=== PATIENT | male | born 1980 | race Caucasian/White ===

== ENCOUNTER 2017-02-03 15:12 | Emergency (ER) | payer OTHER ==
[~2017-02-03] VITALS: Ht 185.4 cm; Wt 146.5 kg
[~2017-02-03 15:12] MED LIST: ACETAMINOP160 MG/51 PO; ADULT LOW DOSE81 M1 PO; ADVIL200 M1 PO; AMRIX15 MG PO; ANXIETY MED; ASPIR 8181 M1 PO; ASPIR-LOW81 MG PO; ATARAX,VISTARIL25 MG PO; AUGMENTIN500 MG PO; BUTALB-APAP-CA1 EACH PO; CEFDINIR300 MG PO; CELEXA20 MG; CELEXA20 MG PO; CHLORDIAZEPOXI1 EACH PO; CITALOPRAM HBR40 M1 PO; COMPAZINE10 MG PO; CYMBALTA30 MG PO; CYPROHEPTADINE H4 M1 PO; DEPAKOTE500 MG PO; DIHYDROERGO1 MG/1 ML SC; DIVALPROEX SOD500 MG PO; ESCITALOPRAM OX10 MG PO; FENOFIBRIC ACI135 MG PO; FLEXERIL10 MG PO; GEODON80 MG; HYDROXYZINE HCL25 MG PO; IMITREX6 MG/0.53 SC; LAMICTAL100 MG PO; LAMICTAL150 M1 PO; LAMICTAL25 MG PO; LAMOTRIGINE100 MG PO; LATUDA40 MG PO; LEVBID0.375 MG PO; LIDOCAINE700 MG TD; LISINOPRIL10 MG PO; LISINOPRIL20 MG PO; LYRICA300 MG PO; METFORMIN HCL1000 MG PO; METFORMIN HCL500 MG PO; MINIPRESS2 MG PO; MOBIC15 MG PO; MULTIPLE VITAM1 EAC1 PO; NAPROSYN500 MG PO; NORCO 5/3251 TABLET PO; NORTRIPTYLINE H25 MG PO; OMEPRAZOLE40 M1 PO; ONDANSETRON ODT4 MG PO; OXCARBAZEPINE300 MG PO; OXYCODONE HCL10 MG PO; PANTOPRAZOLE SO40 MG PO; PERCOCET 5/31 TABLET; PERCOCET 5/31 TABLET PO; PHENADOZ25 MG PR; PHENERGAN25 MG PR; PRAZOSIN HCL1 MG PO; PRAZOSIN HCL2 MG PO; PREDNISONE20 MG PO; PREDNISONE50 MG PO; PRILOSEC40 MG PO; PRISTIQ100 MG PO; PRISTIQ50 MG PO; PROCTOZONE-HC30 GM PR; PROMETHAZINE HC25 M1 PO; RISPERDAL0.5 MG PO; SAPHRIS5 MG SL; SEROQUEL200 MG PO; STRATTERA100 MG PO; SUMATRIPTA6 MG/0.5 M SC; TEMAZEPAM7.5 M1 PO; TIZANIDINE HCL2 M1 PO; TIZANIDINE HCL2 MG PO; TOPIRAMATE25 MG PO; TRAMADOL HCL50 MG PO; TRICOR145 MG PO; TRILIPIX135 MG PO; ULTRAM50 MG PO; VALIUM5 MG PO; VOLTAREN 1% GE100 GM TP; ZANTAC150 MG PO; ZESTRIL20 MG PO; ZOFRAN ODT8 MG PO; ZOFRAN4 MG PO; celeXA PO; depakote PO; oxyCODONE PO
[2017-02-03 15:42] LABS: POINT-OF-CARE METER ID UU13113778
[2017-02-03 16:34] LABS: ADD MIUA? NO; BILIRUBIN NEGATIVE; BLOOD NEGATIVE; COLOR YELLOW ((YELLOW)); GLUCOSE (STRIP) NEGATIVE; KETONES NEGATIVE; LEUKOCYTES NEGATIVE; NITRITE NEGATIVE; PROTEIN (STRIP) NEGATIVE; SPECIFIC GRAVITY 1.023 (1.000-1.030); UCUL ADDED? NO
[2017-02-03 16:48] LABS: HEMATOCRIT 36.7 % (38.0-50.0); MCHC 34.3 G/DL (30.0-36.0); MCV 87.4 FL (86-99); MEAN PLAT.VOLUME 11.1 uM^3 (9.0-12.4); PLATELET COUNT 111 K/uL (156-360); RBC DIS.WIDTH-CV 12.6 % (11.8-14.6); RBC DIS.WIDTH-SD 39.9 % (39-53); WHITE BLOOD COUNT 4.4 K/uL (4.1-10.2)
[2017-02-03 16:57] LABS: CHLORIDE 104 mEq/L (99-109); SODIUM 138 mEq/L (136-147)
[2017-02-03 16:59] LABS: GLUCOSE 177 mg/dL (70-99)
[2017-02-03 17:00] LABS: ANION GAP 11 MEQ/L (2-14)
[2017-02-03 17:01] LABS: TOTAL BILIRUBIN 0.6 mg/dL (0.0-1.0)
[2017-02-03 17:02] LABS: ALKALINE PHOSPHATASE 76 IU/L (3-129)
[2017-02-03 17:03] LABS: GFR ESTIMATE (CALCULATED) > 59 mL/min/
[2017-02-03 17:04] LABS: UREA NITROGEN (BUN) 11 mg/dL (9-23)
[2017-02-03 17:06] LABS: LIPASE 24 U/L (1.0-51.0)
[2017-02-03] MEDS ORDERED: PHENERGAN25 MG PR (17:22)
[2017-02-03 17:29] VITALS: BP 135/92
== END 2017-02-03 17:43 | disposition home or self-care (01) ==
LOC: EME 15:12 → EXP 15:12
PROVIDERS: Nurse Practitioner Family
DX: J06.9 Acute upper respiratory infection, unspecified (principal); R19.7 Diarrhea, unspecified; E11.9 Type 2 diabetes mellitus without complications; M79.7 Fibromyalgia; I10 Essential (primary) hypertension; Z79.84 Long term (current) use of oral hypoglycemic drugs
CPT/HCPCS: 71020; 80053; 81003; 82948; 83690; 85027; 99281; 99284; J1200; J1885; J2405; J2765; J7030

== ENCOUNTER 2017-02-08 09:05 | Observation (INO) | payer OTHER ==
[~2017-02-08] VITALS: Ht 185.4 cm; Wt 145.4 kg
[2017-02-08 10:18] LABS: MCHC 34.3 G/DL (30.0-36.0); MCV 87.3 FL (86-99); PLATELET COUNT 137 K/uL (156-360); RBC DIS.WIDTH-CV 12.8 % (11.8-14.6); RBC DIS.WIDTH-SD 40.2 % (39-53); RED BLOOD COUNT 5.04 M/uL (4.00-5.50)
[2017-02-08 10:19] LABS: WHITE BLOOD COUNT 6.7 K/uL (4.1-10.2)
[2017-02-08 10:53] LABS: ALKALINE PHOSPHATASE 78 IU/L (3-129); ANION GAP 12 MEQ/L (2-14); CHLORIDE 104 MEQ/L (99-109); GFR ESTIMATE (CALCULATED) > 59 mL/min/; GLUCOSE 220 mg/dL (70-99); LIPASE 31 U/L (1.0-51.0); SAMPLE HEMOLYSIS CHECK 0; SAMPLE ICTERIC CHECK 0; SAMPLE LIPEMIA CHECK 0; SODIUM 139 MEQ/L (136-147); TOTAL BILIRUBIN 0.7 MG/DL (0.0-1.0); UREA NITROGEN (BUN) 18 mg/dL (9-23)
[2017-02-08 11:09] LABS: ADD MIUA? YES; BILIRUBIN NEGATIVE; BLOOD NEGATIVE; COLOR AMBER ((YELLOW)); GLUCOSE (STRIP) NEGATIVE; KETONES NEGATIVE; LEUKOCYTES NEGATIVE; NITRITE NEGATIVE; PROTEIN (STRIP) 30; SPECIFIC GRAVITY 1.025 (1.000-1.030); UROBILINOGEN 0.2 MG/DL (0.2-1.0)
[2017-02-08 11:22] LABS: BACTERIA RARE /HPF; CALCIUM OXALATE CRYSTALS 3+ /HPF; EPITHELIAL CELLS RARE /HPF; HYALINE CASTS 0-5 /LPF; MUCUS 1+ /LPF; RED BLOOD CELLS 0-5 /HPF (0-5); UCUL ADDED? NO; WHITE BLOOD CELLS 0-5 /HPF (0-5)
[2017-02-08 11:49] LABS: AMYLASE 21 IU/L (1-118)
[2017-02-08] MEDS ORDERED: OMEPRAZOLE40 M1 PO (14:32)
[2017-02-08] MEDS ORDERED: LAMICTAL25 MG PO (14:36)
[2017-02-08] MEDS ORDERED: METFORMIN HCL500 MG PO (14:41)
[2017-02-08 17:18] VITALS: BP 139/66
[2017-02-08 19:39] LABS: C DIFF TOXIN NEGATIVE (NEGATIVE)
[2017-02-08 19:40] LABS: PROBE CHECK PASS; SPECIMEN PROCESSING CONTROL PASS
[2017-02-08 23:37] VITALS: BP 125/59
[2017-02-09 03:41] VITALS: BP 125/67
[2017-02-09 06:39] LABS: ALKALINE PHOSPHATASE 55 IU/L (3-129); ANION GAP 10 MEQ/L (2-14); ANION GAP 9 MEQ/L (2-14); CHLORIDE 105 MEQ/L (99-109); CHLORIDE 106 MEQ/L (99-109); GFR ESTIMATE (CALCULATED) > 59 mL/min/; GLUCOSE 167 mg/dL (70-99); GLUCOSE 172 mg/dL (70-99); POTASSIUM 3.7 MEQ/L (3.7-5.4); SAMPLE HEMOLYSIS CHECK 0; SAMPLE ICTERIC CHECK 0; SAMPLE LIPEMIA CHECK 0; SODIUM 139 MEQ/L (136-147); SODIUM 140 MEQ/L (136-147); UREA NITROGEN (BUN) 13 mg/dL (9-23); UREA NITROGEN (BUN) 14 mg/dL (9-23)
[2017-02-09 06:40] LABS: TOTAL BILIRUBIN 1.1 MG/DL (0.0-1.0)
[2017-02-09 07:10] LABS: EOSINOPHIL COUNT 0.2 K/uL (0-0.3); HEMATOCRIT 36.9 % (38.0-50.0); IMMATURE GRANULOCYTE (%) 0.4 % (0.0-0.7); INSTRUMENT ABS NEUTROPHIL CT 2.7 K/uL; MCH 29.8 PG (29.0-34.0); MCHC 33.9 G/DL (30.0-36.0); MCV 87.9 FL (86-99); MEAN PLAT.VOLUME 11.1 uM^3 (9.0-12.4); MONOCYTE COUNT 0.6 K/uL (0-0.8); NEUTROPHIL (%) 60.2 % (45-76); NEUTROPHIL COUNT 2.7 K/uL (1.8-6.4); PLATELET COUNT 120 K/uL (156-360); RBC DIS.WIDTH-SD 41.3 % (39-53)
[2017-02-09 07:25] VITALS: BP 138/75
[2017-02-09 07:36] LABS: WHITE BLOOD COUNT 4.5 K/uL (4.1-10.2)
[2017-02-09 11:44] VITALS: BP 127/63
[2017-02-09 16:01] VITALS: BP 136/69
[2017-02-09 16:20] LABS: POINT-OF-CARE METER ID UU13113694
[2017-02-09 23:54] VITALS: BP 123/68
[2017-02-10] VITALS: BP 123/61
[2017-02-10 01:43] LABS: POINT-OF-CARE METER ID UU14162513
[2017-02-10 04:00] VITALS: BP 137/73
[2017-02-10 06:00] VITALS: BP 117/65
[2017-02-10 06:47] LABS: HEMATOCRIT 34.4 % (38.0-50.0); MCH 29.9 PG (29.0-34.0); MCHC 33.4 G/DL (30.0-36.0); MCV 89.6 FL (86-99); MEAN PLAT.VOLUME 10.9 uM^3 (9.0-12.4); PLATELET COUNT 88 K/uL (156-360); RBC DIS.WIDTH-CV 12.9 % (11.8-14.6); RED BLOOD COUNT 3.84 M/uL (4.00-5.50); WHITE BLOOD COUNT 3.2 K/uL (4.1-10.2)
[2017-02-10 07:14] LABS: ALKALINE PHOSPHATASE 55 IU/L (3-129); ANION GAP 9 MEQ/L (2-14); CHLORIDE 108 MEQ/L (99-109); DIRECT BILIRUBIN 0.2 mg/dL (0.0-0.3); GFR ESTIMATE (CALCULATED) > 59 mL/min/; GLUCOSE 140 mg/dL (70-99); POTASSIUM 3.7 MEQ/L (3.7-5.4); SAMPLE HEMOLYSIS CHECK 0; SAMPLE ICTERIC CHECK 0; SAMPLE LIPEMIA CHECK 0; SODIUM 142 MEQ/L (136-147); UREA NITROGEN (BUN) 9 mg/dL (9-23)
[2017-02-10 07:18] LABS: TOTAL BILIRUBIN 0.6 MG/DL (0.0-1.0)
[2017-02-10 07:40] LABS: POINT-OF-CARE METER ID UU13113831
[2017-02-10] MEDS ORDERED: PROTONIX40 MG PO (07:53)
[2017-02-10 07:55] VITALS: BP 140/76
[2017-02-10] MEDS ORDERED: ZOFRAN4 MG PO (09:51)
[2017-02-10 11:14] LABS: HBSG INDEX 0.25; HPCA INDEX 0.13
[2017-02-10 11:15] LABS: ANTI-HEPATITIS A VIRUS (IGM) Nonreactive; HAV INDEX 0.14
[2017-02-10 11:17] LABS: ANTI-HEPATITIS B CORE (IGM) Nonreactive; HBC IgM INDEX 0.07
== END 2017-02-10 11:07 | disposition home or self-care (01) ==
LOC: EME 09:05 → EDOF 14:28 → 5WEST 14:28
PROVIDERS: Family Medicine; Internal Medicine Gastroenterology; Nurse Practitioner Adult Health
PROC: 0DB68ZX Excision of Stomach, Via Natural or Artificial Opening Endoscopic, Diagnostic (ICD-10-PCS; principal; 2017-02-09)
DX: K29.70 Gastritis, unspecified, without bleeding (principal); K76.0 Fatty (change of) liver, not elsewhere classified; R16.1 Splenomegaly, not elsewhere classified; D69.6 Thrombocytopenia, unspecified; I10 Essential (primary) hypertension; G47.30 Sleep apnea, unspecified; G43.909 Migraine, unspecified, not intractable, without status migrainosus; E78.5 Hyperlipidemia, unspecified; F32.9 Major depressive disorder, single episode, unspecified; F43.10 Post-traumatic stress disorder, unspecified; E66.01 Morbid (severe) obesity due to excess calories; Z68.41 Body mass index [BMI] 40.0-44.9, adult
CPT/HCPCS: 74177; 80048; 80053; 80074; 80076; 81003; 82150; 82948; 83690; 85025; 85027; 87177; 87493; 88305; 88342 TC; 99281; 99285; C9113; G0378; J1170; J2270; J2405; J2765; J3010; J7030; S0028

== ENCOUNTER 2017-02-14 14:07 | Inpatient (IN) | payer OTHER ==
[~2017-02-14] VITALS: Ht 185.4 cm; Wt 143.6 kg
[~2017-02-14 14:07] MED LIST changes: +PROTONIX40 MG PO
[2017-02-14 14:47] LABS: POINT-OF-CARE METER ID UU13113778
[2017-02-14 15:00] LABS: HEMATOCRIT 40.9 % (38.0-50.0); MCH 29.4 PG (29.0-34.0); MCHC 33.5 G/DL (30.0-36.0); MCV 87.8 FL (86-99); MEAN PLAT.VOLUME 10.5 uM^3 (9.0-12.4); RBC DIS.WIDTH-CV 12.7 % (11.8-14.6); RBC DIS.WIDTH-SD 41.1 % (39-53)
[2017-02-14 15:01] LABS: PLATELET COUNT 139 K/uL (156-360); RED BLOOD COUNT 4.66 M/uL (4.00-5.50)
[2017-02-14 15:06] LABS: CHLORIDE 108 mEq/L (99-109); SODIUM 141 mEq/L (136-147)
[2017-02-14 15:09] LABS: GLUCOSE 121 mg/dL (70-99)
[2017-02-14 15:10] LABS: ANION GAP 9 MEQ/L (2-14)
[2017-02-14 15:11] LABS: TOTAL BILIRUBIN 0.6 mg/dL (0.0-1.0)
[2017-02-14 15:12] LABS: ALKALINE PHOSPHATASE 75 IU/L (3-129); GFR ESTIMATE (CALCULATED) > 59 mL/min/
[2017-02-14 15:13] LABS: UREA NITROGEN (BUN) 9 mg/dL (9-23)
[2017-02-14 15:16] LABS: LIPASE 34 U/L (1.0-51.0)
[2017-02-14 17:23] LABS: ADD MIUA? YES; BILIRUBIN NEGATIVE; BLOOD NEGATIVE; COLOR YELLOW ((YELLOW)); GLUCOSE (STRIP) NEGATIVE; KETONES NEGATIVE; LEUKOCYTES NEGATIVE; NITRITE NEGATIVE; PROTEIN (STRIP) NEGATIVE; UROBILINOGEN 0.2 MG/DL (0.2-1.0)
[2017-02-14 17:29] LABS: BACTERIA RARE /HPF; EPITHELIAL CELLS NONE SEEN /HPF; MUCUS TRACE /LPF; RED BLOOD CELLS 0-5 /HPF (0-5); UCUL ADDED? NO; WHITE BLOOD CELLS 0-5 /HPF (0-5)
[2017-02-14 17:30] LABS: AMPHETAMINE NEGATIVE (500 ng/mL); BARBITURATES NEGATIVE (200 ng/mL); BENZODIAZEPINES NEGATIVE (150 ng/mL); COCAINE NEGATIVE (150 ng/mL); INTERNAL CONTROLS VALID? YES; METHADONE NEGATIVE (200 ng/mL); METHAMPHETAMINE NEGATIVE (500 ng/mL); OPIATES (MORPHINE) NEGATIVE (100 ng/mL); OXYCODONE PRESUMPTIVE POSITIVE (100 ng/mL); PHENCYCLIDINE NEGATIVE (25 ng/mL); PROPOXYPHENE NEGATIVE (300 ng/mL); THC CANNABINOIDS NEGATIVE (50 ng/mL); TRICYCLIC ANTIDEPRESSANTS NEGATIVE (300 ng/mL)
[2017-02-14] MEDS ORDERED: TYLENOL EXTRA500 MG PO (21:17)
[2017-02-14] MEDS ORDERED: MAXALT10 MG PO (21:17)
[2017-02-14] MEDS ORDERED: FLONASE16 G1 BOTH NARES (21:18)
[2017-02-14] MEDS ORDERED: FISH OIL 1,0001 EAC7 PO (21:18)
[2017-02-14] MEDS ORDERED: NIGHT TIME COL296 ML PO (21:19)
[2017-02-15 06:28] LABS: CHLORIDE 111 mEq/L (99-109); POTASSIUM 4.2 mEq/L (3.7-5.4); SODIUM 142 mEq/L (136-147)
[2017-02-15 06:29] LABS: GLUCOSE 139 mg/dL (70-99)
[2017-02-15 06:31] LABS: ANION GAP 11 MEQ/L (2-14)
[2017-02-15 06:33] LABS: GFR ESTIMATE (CALCULATED) > 59 mL/min/
[2017-02-15 06:34] LABS: UREA NITROGEN (BUN) 8 mg/dL (9-23)
[2017-02-15 08:39] LABS: POINT-OF-CARE METER ID UU14100415
[2017-02-15 09:34] VITALS: BP 129/69
[2017-02-15 11:35] LABS: POINT-OF-CARE METER ID UU14100415
[2017-02-15 11:41] VITALS: BP 129/69
[2017-02-15 15:27] VITALS: BP 147/76
[2017-02-15 15:57] LABS: POINT-OF-CARE METER ID UU14100415
[2017-02-15 16:16] VITALS: BP 166/93
[2017-02-15 16:39] LABS: POINT-OF-CARE METER ID UU13113725
[2017-02-15 23:15] VITALS: BP 115/58
[2017-02-16 00:02] LABS: POINT-OF-CARE METER ID UU13113725
[2017-02-16 07:47] VITALS: BP 121/73
[2017-02-16 14:06] LABS: POINT-OF-CARE METER ID UU13113725
[2017-02-16 17:15] VITALS: BP 125/71
[2017-02-16 23:27] VITALS: BP 119/81
[2017-02-17 08:13] VITALS: BP 143/77
[2017-02-17 16:42] VITALS: BP 129/58
[2017-02-17 21:02] LABS: POINT-OF-CARE METER ID UU13113725
[2017-02-17 23:00] VITALS: BP 151/84
[2017-02-18 05:52] LABS: POINT-OF-CARE METER ID UU13113725
[2017-02-18 07:52] VITALS: BP 124/65
[2017-02-18] MEDS ORDERED: PROTONIX40 MG PO (13:02)
[2017-02-18] MEDS ORDERED: ZOFRAN ODT8 MG PO (13:03)
[2017-02-18] MEDS ORDERED: METFORMIN HCL1000 MG PO (13:03)
[2017-02-18] MEDS ORDERED: ACETAMINOPHEN-1 EAC1 PO (13:04)
[2017-02-18] MEDS ORDERED: COLACE100 MG PO (13:20)
[2017-02-18] MEDS ORDERED: MIRALAX17 GM PO (13:20)
== END 2017-02-18 14:03 | disposition home or self-care (01) | DRG 392 ==
LOC: EME 14:07 → EDOF 23:04 → 5EAST 23:04
PROVIDERS: Family Medicine; Hospitalist; Internal Medicine; Physician Assistant
DX: R10.9 Unspecified abdominal pain (principal); Z68.41 Body mass index [BMI] 40.0-44.9, adult; R11.2 Nausea with vomiting, unspecified; E11.9 Type 2 diabetes mellitus without complications; E78.5 Hyperlipidemia, unspecified; I10 Essential (primary) hypertension; K76.0 Fatty (change of) liver, not elsewhere classified; G47.30 Sleep apnea, unspecified; E66.9 Obesity, unspecified; D69.6 Thrombocytopenia, unspecified; F32.9 Major depressive disorder, single episode, unspecified; K29.70 Gastritis, unspecified, without bleeding
CPT/HCPCS: 74176; 78264; 80048; 80053; 81003; 82607; 82746; 82948; 83690; 85027; 99281; 99285; A9541; C9113; J0780; J1200; J1630; J1644; J1815; J2060; J2405; J2765; J3480; J7030

== ENCOUNTER 2017-08-17 20:50 | Emergency (ER) | payer OTHER ==
[~2017-08-17] VITALS: Ht 188 cm; Wt 128.4 kg
[~2017-08-17 20:50] MED LIST changes: +ACETAMINOPHEN-1 EAC1 PO; +COLACE100 MG PO; +FISH OIL 1,0001 EAC7 PO; +FLONASE16 G1 BOTH NARES; +MAXALT10 MG PO; +MIRALAX17 GM PO; +NIGHT TIME COL296 ML PO; +TYLENOL EXTRA500 MG PO
[2017-08-18 00:56] LABS: HEMATOCRIT 38.7 % (38.0-50.0); MCHC 35.1 G/DL (30.0-36.0); MCV 88.2 FL (86-99); MEAN PLAT.VOLUME 10.5 uM^3 (9.0-12.4); PLATELET COUNT 153 K/uL (156-360); RBC DIS.WIDTH-CV 12.6 % (11.8-14.6); RBC DIS.WIDTH-SD 40.8 % (39-53); RED BLOOD COUNT 4.39 M/uL (4.00-5.50); WHITE BLOOD COUNT 6.5 K/uL (4.1-10.2)
[2017-08-18 01:05] LABS: CHLORIDE 106 mEq/L (99-109); POTASSIUM 3.8 mEq/L (3.7-5.4); SODIUM 140 mEq/L (136-147)
[2017-08-18 01:07] LABS: GLUCOSE 119 mg/dL (70-99)
[2017-08-18 01:08] LABS: ANION GAP 13 MEQ/L (2-14); D-DIMER ELISA < 150.00 ng/mLDDU (<230)
[2017-08-18 01:09] LABS: TOTAL BILIRUBIN 0.5 mg/dL (0.0-1.0)
[2017-08-18 01:11] LABS: ALKALINE PHOSPHATASE 60 IU/L (3-129); GFR ESTIMATE (CALCULATED) > 59 mL/min/
[2017-08-18 01:12] LABS: UREA NITROGEN (BUN) 17 mg/dL (9-23)
[2017-08-18] MEDS ORDERED: VALIUM5 MG PO (01:20)
[2017-08-18] MEDS ORDERED: MOTRIN800 MG PO (01:20)
[2017-08-18 01:46] VITALS: BP 143/80
== END 2017-08-18 01:46 | disposition home or self-care (01) ==
LOC: EME 20:50 → EXP 20:51
PROVIDERS: Nurse Practitioner Family
DX: S20.212A Contusion of left front wall of thorax, initial encounter (principal); W51.XXXA Accidental striking against or bumped into by another person, initial encounter; Y93.75 Activity, martial arts
CPT/HCPCS: 71101; 80053; 85027; 85379; 99281; 99283; J1885

== ENCOUNTER 2018-01-29 14:14 | Emergency (ER) | payer OTHER ==
[~2018-01-29] VITALS: Ht 185.4 cm; Wt 126.6 kg
[~2018-01-29 14:14] MED LIST changes: +MOTRIN800 MG PO
[2018-01-29 15:12] LABS: BASOPHIL (%) 0.3 % (0-1); EOSINOPHIL (%) 2.3 % (0-5); EOSINOPHIL COUNT 0.1 K/uL (0-0.3); HEMATOCRIT 39.1 % (38.0-50.0); HEMOGLOBIN 14.1 G/DL (12.5-16.6); IMMATURE GRANULOCYTE (%) 0.2 % (0.0-0.7); LYMPHOCYTE (%) 30.3 % (15-42); LYMPHOCYTE COUNT 1.8 K/uL (1.0-2.8); MCHC 36.1 G/DL (30.0-36.0); MCV 85.9 FL (86-99); MONOCYTE (%) 6.8 % (3-12); MONOCYTE COUNT 0.4 K/uL (0-0.8); NEUTROPHIL (%) 60.1 % (45-76); NEUTROPHIL COUNT 3.5 K/uL (1.8-6.4); PLATELET COUNT 160 K/uL (156-360); RBC DIS.WIDTH-CV 12.6 % (11.8-14.6); RBC DIS.WIDTH-SD 39.3 % (39-53); RED BLOOD COUNT 4.55 M/uL (4.00-5.50); WHITE BLOOD COUNT 5.8 K/uL (4.1-10.2)
[2018-01-29 15:25] LABS: ALBUMIN 4.5 g/dL (3.2-4.8); CHLORIDE 106 mEq/L (99-109); SODIUM 138 mEq/L (136-147)
[2018-01-29 15:27] LABS: GLUCOSE 115 mg/dL (70-99); TOTAL PROTEIN 7.2 g/dL (6.4-8.3)
[2018-01-29 15:29] LABS: TOTAL BILIRUBIN 0.4 mg/dL (0.0-1.0)
[2018-01-29 15:31] LABS: ALKALINE PHOSPHATASE 63 IU/L (3-129); CREATININE 0.8 mg/dL (0.6-1.3); GFR ESTIMATE (CALCULATED) > 59 mL/min/ (58.99-99999)
[2018-01-29 15:32] LABS: UREA NITROGEN (BUN) 17 mg/dL (9-23)
[2018-01-29 15:33] LABS: AST (GOT) 24 IU/L (2-34)
[2018-01-29 15:34] LABS: ALT (GPT) 18 IU/L (3-49); LIPASE 31 U/L (1.0-51.0)
[2018-01-29 16:54] LABS: APPEARANCE CLEAR ((CLEAR)); BILIRUBIN NEGATIVE; BLOOD NEGATIVE; COLOR YELLOW ((YELLOW)); GLUCOSE (STRIP) NEGATIVE; KETONES NEGATIVE; LEUKOCYTES NEGATIVE; NITRITE NEGATIVE; PROTEIN (STRIP) NEGATIVE; UROBILINOGEN 0.2 MG/DL (0.2-1.0)
[2018-01-29] MEDS ORDERED: ZOFRAN ODT4 MG PO (17:44)
[2018-01-29] MEDS ORDERED: ULTRAM50 MG PO (17:44)
[2018-01-29 17:56] VITALS: BP 132/98
== END 2018-01-29 17:56 | disposition home or self-care (01) ==
LOC: EME 14:14
PROVIDERS: Physician Assistant
DX: R10.11 Right upper quadrant pain (principal); I10 Essential (primary) hypertension; E11.9 Type 2 diabetes mellitus without complications; M79.7 Fibromyalgia; F32.9 Major depressive disorder, single episode, unspecified; F41.9 Anxiety disorder, unspecified; Z90.49 Acquired absence of other specified parts of digestive tract; Z88.6 Allergy status to analgesic agent; Z88.8 Allergy status to other drugs, medicaments and biological substances
CPT/HCPCS: 74176; 80053; 81003; 83690; 85025; 99281; 99285; J2405; J3010; J7030